=== PATIENT | female | born 1940 | race Caucasian/White ===

== ENCOUNTER 2018-05-11 20:05 | Emergency (ER) | payer BC ==
[2018-05-11] MEDS ORDERED: METHYLPREDNISOLONE PF 125MG/VIAL IVP ONE (20:15)
[2018-05-11] MEDS ORDERED: IPRATROPIUM/ALBUTEROL (0.5MG/3MG) NEB INH ONE (20:15)
--- NOTE | 2018-05-11 20:19 | Emergency Department Record ---
History of Present Illness - General Chief Complaint: Shortness of breath Stated Complaint: JASON Time Seen by Provider: 05/11/18 20:12 Source: Patient Mode of Arrival: Wheelchair Limitations: No limitations - History of Present Illness Initial Comments: 77 yo female presents to ED for evaluation of worsening difficulty in breathing symptoms for the past 3-4 days. Patient was started on Levaquin several days ago for presumed PNA, patient denies history of COPD/Asthma, has been using albuterol at home without improvement. Patient denies chest discomfort or lower extremity edema on examination. MD Complaint: Shortness of breath Onset/Timin -: Days(s) Consistency: Constant Improves With: Bronchodilators Worsens With: Coughing Context: Recent URI Associated Symptoms: Cough, Pain with inspiration, Sputum production Treatments Prior to Arrival: Bronchodilator - Related Data Home Oxygen Therapy: No Home Medications Medication Instructions Recorded Confirmed Last Taken Albuterol Sulfate 0.083% [Neb] 3 ml NEB .EVERY 4-6 HOURS PRN 05/11/18 05/11/18 05/11/18 [Albuterol Sulfate] Levofloxacin [Levaquin] 500 mg PO Q12HR 05/11/18 05/11/18 05/11/18 Levothyroxine Sodium [Synthroid] 25 mcg PO DAILY 05/11/18 05/11/18 05/11/18 Lisinopril 40 mg PO DAILY 05/11/18 05/11/18 05/11/18 Multivitamin [Multi-Vitamin Daily] 1 each PO DAILY 05/11/18 05/11/18 05/11/18 Ranitidine HCl [Zantac] 300 mg PO QHS 05/11/18 05/11/18 05/11/18 Verapamil HCl [Verapamil Sr] 120 mg PO DAILY 05/11/18 05/11/18 05/11/18 Warfarin Sodium 2 mg PO DAILY 05/11/18 05/11/18 05/11/18 Previous Rx's Medication Instructions Recorded Prednisone [Prednisone 20Mg] 20 mg PO BID #10 tab 05/11/18 Allergies Allergy/AdvReac Type Severity Reaction Status Date / Time Sulfa (Sulfonamide AdvReac HIVES Verified 05/11/18 20:15 Antibiotics) Travel Screening - Travel/Exposure Within Last 30 Days Have you traveled within the last 30 days?: No - Travel Symptoms Symptom Screening: None Review of Systems Constitutional: Denies: Chills, Fever, Malaise, Night sweats Eyes: Denies: Eye discharge, Eye pain ENT: Denies: Congestion, Ear pain, Epistaxis Respiratory: Reports: Cough, Dyspnea, Wheezes Cardiovascular: Reports: Dyspnea on exertion. Denies: Chest pain, Edema Endocrine: Denies: Fatigue, Heat or cold intolerance Gastrointestinal: Denies: Abdominal pain, Nausea, Vomiting Genitourinary: Denies: Incontinence, Retention Musculoskeletal: Denies: Arthralgia, Back pain Skin: Denies: Bruising, Change in color, Change in hair/nails Neurological: Denies: Abnormal gait, Confusion, Headache, Seizure Psychiatric: Denies: Anxiety Hematological/Lymphatic: Denies: Anemia, Blood Clots Physical Exam - General General Appearance: Alert, Oriented x3, Cooperative, Mild distress Limitations: No limitations - Head Head exam: Atraumatic, Normocephalic, Normal inspection Head exam detail: negative: Abrasion, Contusion, Willson's sign, General tenderness, Hematoma, Laceration - Eye Eye exam: Normal appearance. negative: Conjunctival injection, Periorbital swelling, Periorbital tenderness, Scleral icterus - ENT Ear exam: negative: Auricular hematoma, Auricular trauma Nasal Exam: negative: Active bleeding, Discharge, Dried blood, Foreign body Mouth exam: negative: Drooling, Laceration, Muffled voice, Tongue elevation - Neck Neck exam: Normal inspection. negative: Meningismus, Tenderness - Respiratory Respiratory exam: Decreased breath sounds, Wheezes. negative: Respiratory distress, Rhonchi, Stridor - Cardiovascular Cardiovascular Exam: Regular rate, Normal rhythm, Normal heart sounds - GI/Abdominal GI/Abdominal exam: Soft. negative: Rebound, Rigid, Tenderness - Rectal Rectal exam: Deferred - exam: Deferred - Extremities Extremities exam: Normal inspection. negative: Pedal edema, Tenderness - Back Back exam: Denies: CVA tenderness (R), CVA tenderness (L) - Neurological Neurological exam: Alert, Normal gait, Oriented X3 - Psychiatric Psychiatric exam: Normal affect, Normal mood - Skin Skin exam: Normal color. negative: Abrasion Type of lesion: negative: abrasion Course Vital Signs 05/11/18 20:08 Temperature 97.7 F Pulse Rate 97 H Respiratory 16 Rate Blood Pressure 208/82 Pulse Ox 94 L - Reevaluation(s) Reevaluation #1: 03/28/19 20:24 EKG: NSR 78 Normal axis, normal intervals Artifact V6, no acute ST-T wave changes Reevaluation #2: 05/11/18 20:52 Laboratory studies were reviewed and are grossly unremarkable for an acute process. Patient was reassessed, reports that she is feeling much better and wants to go home at this time. CXR pending at this time. Reevaluation #3: 05/11/18 21:04 CXR: Mild hyper-inflammation on examination Patient was updated on radiograph results, reports that she wants to go home at this time. Will treat with Prednisone as directed. Patient has albuterol and nebulizer at home as well. Patient appears stable for discharge at this time. Medical Decision Making - Lab Data Result diagrams: 05/11/18 20:15 05/11/18 20:15 Disposition Disposition: Discharge Clinical Impression: RAD (reactive airway disease) Qualifiers: Asthma severity: moderate Asthma persistence: persistent Asthma complication type: with acute exacerbation Qualified Code(s): J45.41 - Moderate persistent asthma with (acute) exacerbation Disposition: Home, Self-Care Condition: (2) Stable Instructions: Reactive Airways Disease (ED) Additional Instructions: Return to ED if your symptoms worsen or if you have any concerns. Prednisone as directed. Follow-up with your family doctor in 3-5 days as directed. Prescriptions: Prednisone [Prednisone 20Mg] 20 mg PO BID #10 tab Forms: Patient Portal Access Time of Disposition: 21:07 Quality - Quality Measures Quality Measures: N/A - Blood Pressure Screening Does Patient Have Any of the Following: No Blood Pressure Classification: Pre-Hypertensive BP Reading Systolic Measurement: 208 Diastolic Measurement: 82 Screening for High Blood Pressure: < Pre-Hypertensive BP, F/U Documented > [ [id number]] Pre-Hypertensive Follow-up Interventions: Referral to alternative/primary care provider.
[2018-05-11 20:25] LABS: BASO % 0.5 % (0-6); EOS % 8.7 % (0-6); GRAN % 60.5 % (47-80); HEMATOCRIT 36.4 % (35.0-47.0); HEMOGLOBIN 12.1 gm/dl (11.6-16.0); LYMPH % 20.9 % (16-45); MEAN CELL VOLUME 87.9 fl (81-97); MEAN CORPUSCULAR HEMOGLOBIN 29.2 pg (27-33); MEAN CORPUSCULAR HGB CONC 33.2 g/dl (32-36); MEAN PLATELET VOLUME 9.1 fl (7.4-10.4); MONO % 9.4 % (0-9); PLATELET COUNT 399 K/uL (130-400); RED BLOOD COUNT 4.14 M/uL (3.80-5.40); RED CELL DISTRIBUTION WIDTH 14.7 % (11.5-14.5); WHITE BLOOD COUNT W/O DIFF 9.6 K/uL (4.2-12.2)
[2018-05-11 20:33] LABS: BLOOD UREA NITROGEN 19 mg/dL (8-23); CREATININE 1.1 mg/dL (0.5-0.9); EST GLOMERULAR FILTRATION RATE 51 mL/min
[2018-05-11 20:34] LABS: TOTAL PROTEIN 7.4 g/dL (6.6-8.7)
[2018-05-11 20:36] LABS: GLUCOSE,RANDOM 135 mg/dL (74-109)
[2018-05-11 20:38] LABS: ALT/SGPT 21 U/L (<33); AST/SGOT 55 U/L (10.0-35.0)
[2018-05-11 20:39] LABS: ALB/GLOB RATIO 1.7 (1.1-1.8); ALBUMIN 4.7 g/dL (4.0-5.0); ALKALINE PHOSPHATASE 70 U/L (35-104)
--- NOTE | 2018-05-15 08:57 | RADIOLOGY REPORT ---
EXAM: CHEST, TWO VIEWS HISTORY: WORSENING DIFFICULTY IN BREATHING. PRODUCTIVE COUGH. CHEST PAIN. TECHNIQUE: Upright PA and lateral views of the chest were obtained. Comparison: Two view chest radiographic examination dated 12/06/09. FINDINGS: The heart is not enlarged and the pulmonary vasculature is nondilated. The aortic knob is atherosclerotic. No definite confluent air space opacity is seen nor is there costophrenic angle blunting or pneumothorax. On the frontal view there is relative increased opacity at the level of the left hemithorax base likely relating to superimposition of osseous and lung shadows rather than minor air space disease. There are mild degenerative changes scattered throughout the visualized spine. The lungs appear mildly hyperinflated. IMPRESSION: NO CONVINCING EVIDENCE OF ACUTE CARDIOPULMONARY DISEASE. THE LUNGS AGAIN APPEAR MILDLY HYPERINFLATED. JOB NUMBER: [id number] [facility]
== END 2018-05-11 21:16 | disposition home or self-care (01) ==
LOC: ER 20:05
DX: J45.41 Moderate persistent asthma with (acute) exacerbation (principal); R06.02 Shortness of breath; Z87.891 Personal history of nicotine dependence
CPT/HCPCS: 71046; 80053; 84484; 85025; 93005; 93010; 94640; 96374; 99284; J2930